=== PATIENT | male | born 1985 | race Caucasian/White ===

== ENCOUNTER 2019-03-26 15:24 | Emergency (ER) | payer SELFPAY ==
[2019-03-26] MEDS ORDERED: Ketorolac Tromethamine 60 MG/2 ML VIAL ONE (16:11)
--- NOTE | 2019-03-26 16:16 | RAD ---
3 views left shoulder: 03/26/2019 COMPARISON: None HISTORY: Fall, trauma, pain FINDINGS: No fracture or dislocation. No radiopaque foreign body or subcutaneous gas. There is no wid ening of the acromioclavicular or coracoclavicular interspace. IMPRESSION: No acute findings.
== END 2019-03-26 17:02 | disposition home or self-care (01) ==
LOC: SCSER 15:24
DX: S49.92XA Unspecified injury of left shoulder and upper arm, initial encounter (principal); W18.30XA Fall on same level, unspecified, initial encounter
CPT/HCPCS: 96372; J1885